=== PATIENT | male | born 1945 | race Caucasian/White ===

== ENCOUNTER 2017-04-17 15:00 | Emergency (ER) | payer OTHER, MEDICAID ==
[~2017-04-17] VITALS: Ht 177.8 cm; Wt 63.5 kg
[~2017-04-17 15:00] MED LIST: ALBUTEROL0.09 MG/A2 IH; ALBUTEROL2.5 MG/0.5 INH; CARAFATE1 GM/10 ML PO; CORDROL20 MG PO; DIAZEPAM5 MG PO; DILANTIN100 MG PO; GABAPENTIN600 MG PO; HYDROCODONE BIT1 T11 PO; LEVAQUIN750 MG PO; LEVOFLOXACIN500 MG PO; LEVOTHYROXINE0.05 M1 PO; MOBIC15 MG PO; OXYCODONE15 MG PO; PRILOSEC20 M1 PO; PROTONIX40 MG PO; Percocet 325 MG1 TAB PO; TRICOR145 MG PO; VALIUM10 MG PO; VICODIN 5/500 505 MG PO; WELCHOL625 MG PO; ZOCOR40 MG PO; ZOFRAN ODT4 MG SL
[2017-04-17 15:15] VITALS: BP 136/84
[2017-04-17 15:36] LABS: BASO # 0.1 10*3/uL (0.0-0.1); EOS # 0.8 10*3/uL (0.0-0.4); EOS % 9.2 % (1.0-4.0); HEMATOCRIT 43.5 % (42.0-52.0); HEMOGLOBIN 14.3 g/dl (14.0-18.0); LYMPH # 2.2 10*3/uL (1.3-4.4); LYMPH % 26.9 % (27.0-41.0); MEAN CELL VOLUME 98.2 fl (80.0-94.0); MEAN CORPUSCULAR HGB 32.3 pg (27.0-31.0); MEAN CORPUSCULAR HGB CONC 32.9 g/dl (33.0-37.0); MEAN PLATELET VOLUME 9.4 fl (9.6-12.3); MONO # 0.6 10*3/uL (0.1-1.0); MONO % 7.8 % (3.0-9.0); NEUT # 4.4 10*3/uL (2.3-7.9); PLATELET COUNT AUTOMATED 288 10*3/uL (130-400); RED BLOOD COUNT 4.43 10*6/uL (4.50-5.90); RED CELL DISTRI WIDTH 13.7 % (0-14.5); WHITE BLOOD COUNT 8.2 10*3/uL (4.8-10.8)
[2017-04-17 15:47] LABS: BUN 24 mg/dl (7-24); CHLORIDE 106 mmol/L (98-107); CREATININE 1.25 mg/dL (0.70-1.30); POTASSIUM 4.3 mmol/L (3.5-5.1); SODIUM 142 mmol/L (136-145)
[2017-04-17] MEDS ORDERED: PREDNISONE50 MG PO (15:53)
[2017-04-17] MEDS ORDERED: VIBRAMYCIN100 MG PO (15:53)
== END 2017-04-17 15:56 | disposition home or self-care (01) ==
LOC: ED 15:00
PROVIDERS: Student in an Organized Health Care Education/Training Program
DX: J44.1 Chronic obstructive pulmonary disease with (acute) exacerbation (principal); G43.909 Migraine, unspecified, not intractable, without status migrainosus; F17.210 Nicotine dependence, cigarettes, uncomplicated; Z90.49 Acquired absence of other specified parts of digestive tract; Z79.899 Other long term (current) drug therapy; Z88.0 Allergy status to penicillin

== ENCOUNTER 2018-12-15 20:32 | Emergency (ER) | payer MEDICARE ==
[~2018-12-15] VITALS: Ht 175.2 cm; Wt 68.0 kg
--- NOTE | ~2018-12-15 | EKG ---
[place], [place] ELECTROCARDIOGRAM REPORT NAME: MOMO BULL UNIT #: [id number] ROOM: DOCTOR: EPIPHANY DRAFT REPORT BIRTHDATE: [birth year] [facility] Test Date: 2018-12-15 Test Time: 20:49:25 Pat Name: MOMO BULL Department: Room: Gender: M Online Editor: : 1945 Requested By: ISIS SALDIVAR Order Number: [id number] Reading MD: Measurements Intervals May Rate: 82 P: 40 VA: 199 QRS: 1 QRSD: 112 T: 40 QT: 376 QTc: 439 Interpretive Statements Sinus rhythm Borderline intraventricular conduction delay RSR' in V1 or V2, right VCD or RVH No previous ECG available for comparison CM:EKGRPT:ELECTROCARDIOGRAM REPORT 48 1750 [facility] NEGRO DRAFT REPORT ISIS SALDIVAR MD
[~2018-12-15 20:32] MED LIST changes: +CLINDAMYCIN HC300 MG PO; +PREDNISONE50 MG PO; +VIBRAMYCIN100 MG PO
[2018-12-15 21:00] LABS: BASO # 0.1 10*3/uL (0.0-0.1); BASO % 1.2 % (0.0-1.0); HEMATOCRIT 45.7 % (42.0-52.0); LYMPH # 2.2 10*3/uL (1.3-4.4); LYMPH % 25.7 % (27.0-41.0); MEAN CELL VOLUME 100.2 fl (80.0-94.0); MEAN CORPUSCULAR HGB 32.9 pg (27.0-31.0); MEAN CORPUSCULAR HGB CONC 32.8 g/dl (33.0-37.0); MEAN PLATELET VOLUME 10.2 fl (9.6-12.3); MONO # 0.6 10*3/uL (0.1-1.0); MONO % 6.8 % (3.0-9.0); NEUT # 4.8 10*3/uL (2.3-7.9); NEUT % 54.6 % (47.0-73.0); PLATELET COUNT AUTOMATED 291 10*3/uL (130-400); RED BLOOD COUNT 4.56 10*6/uL (4.50-5.90); RED CELL DISTRI WIDTH 13.5 % (0-14.5); WHITE BLOOD COUNT 8.7 10*3/uL (4.8-10.8)
[2018-12-15 21:11] LABS: INTERNATIONAL NORM RATIO 0.9 (2.0-3.5)
[2018-12-15 21:17] LABS: ALBUMIN 3.3 gm/dl (3.1-4.5); ALKALINE PHOSPHATASE 131 U/L (45-117); BUN 26 mg/dl (7-24); CHLORIDE 116 mmol/L (98-107); CREATININE 1.14 mg/dL (0.70-1.30); LIPASE 96 U/L (73-393); POTASSIUM 4.4 mmol/L (3.5-5.1); SGOT/AST 18 IU/L (3-35); SGPT/ALT 23 U/L (12-78); SODIUM 144 mmol/L (136-145); TOTAL PROTEIN 6.8 gm/dL (6.4-8.2)
[2018-12-15 21:23] LABS: ACETAMINOPHEN (TYLENOL) < 5.0 ug/ml (10-30); ETHYL ALCOHOL < 3.0 mg/dl (<3); TROPONIN I < 0.015 ng/ml (<0.045)
[2018-12-15 22:22] LABS: BILIRUBIN 2+ (NEGATIVE); BLOOD NEGATIVE (NEGATIVE); CLARITY SL CLOUDY (CLEAR); COLOR YELLOW (YELLOW); GLUCOSE NEGATIVE (NEGATIVE); KETONE NEGATIVE (NEGATIVE); LEUKO ESTERASE NEGATIVE (NEGATIVE); NITRITE NEGATIVE (NEGATIVE); SPECIFIC GRAVITY 1.025 (1.005-1.030); UROBILINOGEN 0.2 E.U./dl (0.2-1.0)
[2018-12-15 22:29] LABS: URINE AMPHETAMINES < 1000 (1000ng/ml); URINE BARBITURATES < 200 (200ng/ml); URINE BENZODIAZEPINES > 200 (200ng/ml); URINE CANNABINOIDS (THC) < 50 (50ng/ml); URINE COCAINE > 300 (300ng/ml); URINE METHADONE < 300 (300ng/ml); URINE OPIATES < 300 (300ng/ml)
[2018-12-15 22:32] LABS: URINE PHENCYCLIDINE < 25 (25ng/ml)
[2018-12-15 22:35] LABS: BACTERIA 4+; EPITHELIAL CELLS 0-2; RBC 0-2 rbc/hpf (0-2); WBC 0-2 wbc/hpf (0-5)
[2018-12-15 22:36] VITALS: BP 130/82
== END 2018-12-15 23:24 | disposition home or self-care (01) ==
LOC: ED 20:32
PROVIDERS: Emergency Medicine Emergency Medical Services
DX: G92 Toxic encephalopathy (principal); J44.9 Chronic obstructive pulmonary disease, unspecified; G43.909 Migraine, unspecified, not intractable, without status migrainosus; F17.200 Nicotine dependence, unspecified, uncomplicated; Z88.0 Allergy status to penicillin; Z79.2 Long term (current) use of antibiotics; Z79.899 Other long term (current) drug therapy; Z90.49 Acquired absence of other specified parts of digestive tract

== ENCOUNTER → 2020-04-24 | Outpatient (CLI) | payer MEDICARE ==
[2020-04-24 12:14] LABS: HEMATOCRIT 49.2 % (42.0-52.0); MEAN CELL VOLUME 98.4 fl (80.0-94.0); MEAN CORPUSCULAR HGB 31.6 pg (27.0-31.0); MEAN CORPUSCULAR HGB CONC 32.1 g/dl (33.0-37.0); MEAN PLATELET VOLUME 9.6 fl (9.6-12.3); WHITE BLOOD COUNT 8.4 10*3/uL (4.8-10.8)
[2020-04-24 12:29] LABS: ALBUMIN 3.6 gm/dl (3.1-4.5); ALKALINE PHOSPHATASE 147 U/L (45-117); BUN 21 mg/dl (7-24); CHLORIDE 111 mmol/L (98-107); CHOLESTEROL 233 mg/dL (<200); CREATININE 1.28 mg/dL (0.70-1.30); HDL CHOLESTEROL 61 mg/dl (40-60); LDL CHOLESTEROL 145 mg/dL (9-159); POTASSIUM 4.8 mmol/L (3.5-5.1); SGOT/AST 11 IU/L (3-35); SGPT/ALT 28 U/L (12-78); SODIUM 143 mmol/L (136-145); TOTAL PROTEIN 7.4 gm/dL (6.4-8.2); TRIGLYCERIDES 136 mg/dl (<150); VLDL CHOLESTEROL 27 mg/dL (6-40)
== END | disposition home or self-care (01) ==
LOC: LAB 11:45
PROVIDERS: ATTEND Family Medicine
DX: M12.88 Other specific arthropathies, not elsewhere classified, other specified site (principal); K21.9 Gastro-esophageal reflux disease without esophagitis; E78.00 Pure hypercholesterolemia, unspecified; E74.00 Glycogen storage disease, unspecified; F41.1 Generalized anxiety disorder

== ENCOUNTER 2020-05-16 04:59 | Emergency (ER) | payer OTHER ==
[2020-05-16 05:06] VITALS: BP 138/89
[2020-05-16] MEDS ORDERED: CLINDAMYCIN HC300 MG PO (05:44)
== END 2020-05-16 06:07 | disposition home or self-care (01) ==
LOC: ED 04:59
DX: S61.412A Laceration without foreign body of left hand, initial encounter (principal); Z88.0 Allergy status to penicillin; Z79.899 Other long term (current) drug therapy; W45.8XXA Other foreign body or object entering through skin, initial encounter; Y93.89 Activity, other specified; Y92.89 Other specified places as the place of occurrence of the external cause; Y99.8 Other external cause status

== ENCOUNTER → 2021-01-04 | Outpatient (CLI) | payer OTHER | END | disposition home or self-care (01) | LOC: RAD 09:24 | PROVIDERS: ATTEND Orthopaedic Surgery | DX: M25.551 Pain in right hip (principal); I70.90 Unspecified atherosclerosis ==

== ENCOUNTER → 2021-02-01 | Outpatient (CLI) | payer OTHER | END | disposition home or self-care (01) | LOC: RAD 14:41 | PROVIDERS: ATTEND Family Medicine | DX: M47.816 Spondylosis without myelopathy or radiculopathy, lumbar region (principal); M25.78 Osteophyte, vertebrae; I70.0 Atherosclerosis of aorta; M85.88 Other specified disorders of bone density and structure, other site ==

== ENCOUNTER 2022-07-09 02:34 | Emergency (ER) | payer OTHER ==
[~2022-07-09] VITALS: Ht 175.2 cm; Wt 61.2 kg
[2022-07-09 02:42] VITALS: BP 110/68
[2022-07-09] MEDS ORDERED: ETODOLAC200 MG PO (02:56)
[2022-07-09] MEDS ORDERED: SPIRIVA RESPIMAT4 GM INH (02:58)
[2022-07-09] MEDS ORDERED: FLUTICASONE-SA1 EAC5 INH (02:58)
[2022-07-09] MEDS ORDERED: MIRTAZAPINE30 M2 PO (02:59)
[2022-07-09] MEDS ORDERED: DIAZEPAM2 MG PO (03:00)
== END 2022-07-09 03:23 | disposition left against medical advice (07) ==
LOC: ED 02:34
DX: R40.4 Transient alteration of awareness (principal); Z98.890 Other specified postprocedural states; Z79.899 Other long term (current) drug therapy; Z88.0 Allergy status to penicillin; Z90.49 Acquired absence of other specified parts of digestive tract

== ENCOUNTER 2022-12-24 19:38 | Emergency (ER) | payer OTHER ==
[~2022-12-24] VITALS: Ht 177.8 cm; Wt 51.9 kg
[~2022-12-24 19:38] MED LIST changes: +DIAZEPAM2 MG PO; +ETODOLAC200 MG PO; +FLUTICASONE-SA1 EAC5 INH; +MIRTAZAPINE30 M2 PO; +SPIRIVA RESPIMAT4 GM INH
[2022-12-24 19:45] VITALS: BP 119/83
== END 2022-12-24 20:48 | disposition left against medical advice (07) ==
LOC: ED 19:38
DX: R41.82 Altered mental status, unspecified (principal); Z53.29 Procedure and treatment not carried out because of patient's decision for other reasons; E11.9 Type 2 diabetes mellitus without complications; Z88.0 Allergy status to penicillin; Z79.899 Other long term (current) drug therapy; Z90.49 Acquired absence of other specified parts of digestive tract

== ENCOUNTER → 2022-12-29 | Outpatient (CLI) | payer OTHER | END | disposition home or self-care (01) | LOC: MRI 01:21 | PROVIDERS: ATTEND Physician Assistant Surgical | DX: M47.26 Other spondylosis with radiculopathy, lumbar region (principal); M48.061 Spinal stenosis, lumbar region without neurogenic claudication ==